=== PATIENT | male | born 2000 | race Caucasian/White ===

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

== ENCOUNTER 2022-06-08 18:08 | Emergency (ER) | payer BC, SELFPAY ==
[2022-06-08 18:17] VITALS: BP 134/56; PULSE 76; RESP 16; TEMP 36.6; O2SAT 100
--- NOTE | 2022-06-08 18:17 | ED.ARRPALP ---
HPI - Arrhythmia/Palpitations General Chief Complaint: Arrhythmia/Palpitations Stated Complaint: Heart Beating Fast Time Seen by Provider: 06/08/22 18:43 Source: patient Mode of arrival: ambulatory Limitations: no limitations History of Present Illness HPI narrative: 22-year-old male presents concern for tachycardia. Reports an episode today while he was playing a video game of a heart rate that he measured in the 130s, reports that stayed there for about 30 minutes. At that time he did not have any chest pain, shortness of breath, syncope, near syncope. He did not feel anxious or like he was having a panic attack. Patient does has history of panic attacks, however reports his symptoms were not consistent with his typical panic attacks. He reports he felt shaky and sweaty. He currently feels like his symptoms are resolved, he does not feel shaky or like his heart is beating fast any more MD complaint: rapid heart beat Related Data Allergies Allergy/AdvReac Type Severity Reaction Status Date / Time Penicillins Allergy Mild HIVES Verified 06/08/22 18:19 INFLUENZA SHOT Allergy Mild HIVES Uncoded 06/08/22 18:19 Review of Systems Review of Systems: CONSTITUTIONAL: Denies malaise, chills, sweats, or fever. EYES: Denies visual changes, redness, or discharge. ENT: Denies rhinorrhea, congestion, sinus pain, otalgia or sore throat. CARDIOVASCULAR: Denies chest pain, palpitations, or edema. Reports fast heartbeat RESPIRATORY: Denies cough or dyspnea. GASTROINTESTINAL: Denies abdominal pain, nausea, vomiting, diarrhea, bloody, or mucous stools. GENITOURINARY: Denies dysuria or hematuria. SKIN: Denies rash or itching. MUSCULOSKELETAL: Denies back pain, joint pain, or myalgia. NEUROLOGIC: Denies numbness, weakness, or headache. PSYCHIATRIC: Denies anxiety or depression. All systems reviewed & are unremarkable except as noted in HPI and below PMFSH Past Medical History Medical History (Updated 06/08/22 @ 18:55 by Annie Bundy NP) Abdominal pain Weight loss Family History Family History (Updated 09/18/21 @ 13:50 by Wilma Mclain MA) Grandparent Diabetes mellitus [place]'s disease Social History Social History (Updated 09/18/21 @ 13:44 by Wilma Mclain MA) Smoking status: Never smoker Tobacco type: e-cigarettes/vaping Second hand tobacco smoke exposure: No Alcohol intake: never Substance use: never Substance use type: does not use Living arrangements: with family Occupation/Education: occupation Gender identity (if verbalized by the patient): Male Spiritual care concerns: No Comments At time of signature, agree with nursing past medical, surgical, social and family history. There is no relevant family history pertinent to the presenting complaint Exam Narrative: GENERAL: Well-appearing, well-nourished, and in no acute distress. HEAD: Normocephalic, atraumatic. EYES: PERRLA, sclera clear, and EOMI. No nystagmus. ENT: Nares clear, turbinates pink, no rhinorrhea or epistaxis. Mucous membranes moist. NECK: Supple. No lymphadenopathy CHEST: No respiratory distress. Clear to auscultation. No bony deformities, no asymmetry. Speaks in full sentences. HEART: Regular rate and rhythm. No murmur heard. Normal peripheral pulses. ABDOMEN: Soft, nontender, nondistended, normal active bowel sounds, no palpable masses. EXTREMITIES: Normal range of motion. No edema. Normal strength and sensation. SKIN: Warm, dry, no visible rash. NEURO: Alert and oriented x3. PSYCH: Normal mood and affect Course Course Emergency Course: Patient is aware of diagnosis, understands and agrees to treatment plan. Anticipatory guidance given. Patient agrees to follow-up as directed and is aware of reasons to seek care at the emergency department. Portions of this record may have been created with voice recognition software Level of Care: Express Care Visit Vital Signs Vital signs: Reviewed. MDM - Arrhythmia/P
--- NOTE | 2022-06-08 18:18 | ECG_ITS ---
Measurements Intervals [place] Rate: 59 P: 58 WA: 152 QRS: 53 QRSD: 106 T: 42 QT: 356 QTc: 355 Interpretive Statements SINUS BRADYCARDIA POSSIBLE RIGHT VENTRICULAR CONDUCTION DELAY [RSR (QR) IN V1/V2] NO PREVIOUS ECG AVAILABLE FOR COMPARISON Electronically Signed On 06-09-2022 15:15:02 CDT by Lyle Diaz M.D.
== END 2022-06-08 19:03 | disposition home or self-care (01) ==
PROVIDERS: Emergency Provider Nurse Practitioner; PCP Pediatrics
DX: R00.0 Tachycardia, unspecified (principal)
CPT/HCPCS: 93005; 99213; G0463